=== PATIENT | female | born 1990 | race Asian ===

== ENCOUNTER 2019-03-26 18:24 | Emergency (ER) | payer BC, OTHER ==
[~2019-03-26] VITALS: Ht 152.4 cm; Wt 48.1 kg
[~2019-03-26 18:24] MED LIST: CIPR500T78 PO; HYDR-3714 PO; METR500T PO; OMEP40CA36 PO; ONDA-42 SL
[2019-03-26] MEDS ORDERED: NS IV 1000 ML 1,000 ML IV SCH (19:23)
[2019-03-26] MEDS ORDERED: ACETAMINOPHEN 325 MG TABLET PO STA (19:26)
--- NOTE | 2019-03-26 19:45 | ED General ---
General Chief Complaint: Fever-Adult/Adol Stated Complaint: FEVER AND CHILLS Nursing Triage Note: Pt to ED with c/o fever, chills, headache, vomiting and L lower flank pain that began 5 days ago. Pt reports prior dysuria, but was seen at clinic yesterday and was put on unknown antibiotic. Pt reports the dysuria has resolved. Nursing Sepsis Screen: Possible Sepsis Risk Source of Information: Patient Exam Limitations: No Limitations History of Present Illness Date Seen by Provider: Mar 26, 2019 Time Seen by Provider: 19:25 Initial Comments Here with report of 5 days of fever and chills as well as nausea, vomiting, weakness and headache. Seen at the clinic yesterday and found to have urinary tract infection and started on antibiotic. She does not know what that is. She has been unable to take her antibiotic but otherwise has not been up to eat or drink without vomiting. Complains of left flank and low back pain.. Denies dysuria or diarrhea. Timing/Duration: 4-5 Days Severity: Moderate Associated Systoms: No Chest Pain, No Cough; Fever/Chills, Nausea/Vomiting, Shortness of Air, Weakness Allergies and Home Medications Allergies Coded Allergies: Egg Derived (Verified Allergy, Unknown, 05/31/14) shellfish derived (Verified Allergy, Unknown, 05/31/14) Home Medications Ciprofloxacin HCl 500 Mg Tablet, 500 MG PO BID Prescribed by: GAVIN NORTON on 06/01/14 0250 Hydrocodone Bit/Acetaminophen 1 Each Tablet, 1-2 EACH PO Q6HR PRN PRN for PAIN Prescribed by: GAVIN NORTON on 06/01/14 025 Metronidazole 500 Mg Tab, 1 EACH PO BID Prescribed by: GAVIN NORTON on 06/01/14 0250 Omeprazole 40 Mg Capsule.dr, 40 MG PO BID Prescribed by: TREVOR REYES on 05/31/14 0658 Ondansetron Hcl 4 Mg Tab, 4 MG SL Q4H PRN for NAUSEA FOR NAUSEA AND VOMITING Prescribed by: RTEVOR REYES on 05/31/14 0700 Patient Home Medication List Home Medication List Reviewed: Yes Review of Systems Review of Systems Constitutional: see HPI, chills, fever, weakness EENTM: no symptoms reported Respiratory: no symptoms reported Cardiovascular: no symptoms reported Gastrointestinal: abdominal pain (suprapubic), nausea, vomiting Genitourinary: pain Musculoskeletal: no symptoms reported Skin: no symptoms reported Psychiatric/Neurological: No Symptoms Reported All Other Systems Reviewed Negative Unless Noted: Yes Past Qxnqibw-Liffeh-Hkyyje Hx Past Med/Social Hx: Reviewed Nursing Past Med/Soc Hx Patient Social History Alcohol Use: Denies Use Recreational Drug Use: No 2nd Hand Smoke Exposure: No Recent Foreign Travel: No Contact w/Someone Who Travel: No Recent Infectious Disease Expo: No Immunizations Up To Date Tetanus Booster (TDap): Unknown Seasonal Allergies Seasonal Allergies: No Past Medical History Surgeries: No Respiratory: No Cardiac: No Neurological: No Last Menstrual Period: Mar 11, 2019 Gastrointestinal: No Musculoskeletal: No Endocrine: No Cancer: No Psychosocial: No Integumentary: No Blood Disorders: No Family Medical History Reviewed Nursing Family Hx No Pertinent Family Hx Physical Exam-Suspected Sepsis Physical Exam Vital Signs Vital Signs - First Documented 03/26/19 18:39 Temp 104.2 Pulse 122 Resp 20 B/P (MAP) 105/72 (83) Pulse Ox 98 O2 Delivery Room Air Capillary Refill : Less Than 3 Seconds Blood Pressure Mean: 83 Height, Weight, BMI Height: 5'0" Weight: 106lbs. oz. 48.786472ta; BMI Method:Stated General Appearance: WD/WN, Mild Distress HEENT: PERRL/EOMI, Pharynx Normal Neck: Non Tender, Supple Respiratory: Lungs Clear, Normal Breath Sounds Cardiovascular: No Murmur, Tachycardia Gastrointestinal: Soft, Tenderness (suprapubic) Back: Normal Inspection Extremity: Normal Range of Motion, Non Tender Neurologic/Psychiatric: Alert, Oriented x3 Skin: normal color, warm/dry Focused Exam Lactate Level 03/26/19 19:41: Lactic Acid Level 1.90 Lactic Acid Level Laboratory Tests Test 03/26/19 19:41 Lactic Acid Level 1.90 MMOL/L (0.50-2.00) Progress/Results/Core Measures Suspected Sepsis Recent Fever Within 48 Hours: Yes Infection Criteria Present: Suspected New Infection New/Unexplained Altered Menta: No Sepsis Screen: Possible Sepsis Risk SIRS Temperature:104.2 Pulse: 122 Respiratory Rate: 20 Laboratory Tests 03/26/19 19:41: White Blood Count 13.7H Blood Pressure 105 /72 Mean: 83 03/26/19 19:41: Lactic Acid Level 1.90 Laboratory Tests 03/26/19 19:41: Creatinine 0.76, INR Comment 1.1, Platelet Count 168, Total Bilirubin 1.8H Results/Orders Lab Results Laboratory Tests Test 03/26/19 19:41 03/26/19 20:38 Range/Units White Blood Count 13.7 H 4.3-11.0 10^3/uL Red Blood Count 3.93 L 4.35-5.85 10^6/uL Hemoglobin 12.4 11.5-16.0 G/DL Hematocrit 37 35-52 % Mean Corpuscular Volume 93 80-99 FL Mean Corpuscular Hemoglobin 32 25-34 PG Mean Corpuscular Hemoglobin Concent 34 32-36 G/DL Red Cell Distribution Width 11.6 10.0-14.5 % Platelet Count 168 130-400 10^3/uL Mean Platelet Volume 11.0 H 7.4-10.4 FL Neutrophils (%) (Auto) 84 H 42-75 % Lymphocytes (%) (Auto) 8 L 12-44 % Monocytes (%) (Auto) 8 0-12 % Eosinophils (%) (Auto) 0 0-10 % Basophils (%) (Auto) 0 0-10 % Neutrophils # (Auto) 11.5 H 1.8-7.8 X 10^3 Lymphocytes # (Auto) 1.1 1.0-4.0 X 10^3 Monocytes # (Auto) 1.1 H 0.0-1.0 X 10^3 Eosinophils # (Auto) 0.0 0.0-0.3 10^3/uL Basophils # (Auto) 0.0 0.0-0.1 10^3/uL Prothrombin Time 14.6 12.2-14.7 SEC INR Comment 1.1 0.8-1.4 Activated Partial Thromboplast Time 35 24-35 SEC Sodium Level 133 L 135-145 MMOL/L Potassium Level 3.3 L 3.6-5.0 MMOL/L Chloride Level 98 98-107 MMOL/L Carbon Dioxide Level 19 L 21-32 MMOL/L Anion Gap 16 H 5-14 MMOL/L Blood Urea Nitrogen 5 L 7-18 MG/DL Creatinine 0.76 0.60-1.30 MG/DL Estimat Glomerular Filtration Rate > 60 BUN/Creatinine Ratio 7 Glucose Level 120 H 70-105 MG/DL Lactic Acid Level 1.90 0.50-2.00 MMOL/L Calcium Level 8.7 8.5-10.1 MG/DL Corrected Calcium 8.6 8.5-10.1 MG/DL Total Bilirubin 1.8 H 0.1-1.0 MG/DL Aspartate Amino Transf (AST/SGOT) 18 5-34 U/L Alanine Aminotransferase (ALT/SGPT) 21 0-55 U/L Alkaline Phosphatase 55 40-136 U/L Total Protein 7.5 6.4-8.2 GM/DL Albumin 4.1 3.2-4.5 GM/DL Serum Test, Qualitative NEGATIVE NEGATIVE Urine Color YELLOW Urine Clarity CLEAR Urine pH 8 5-9 Urine Specific Greer 1.010 L 1.016-1.022 Urine Protein 1+ H NEGATIVE Urine Glucose (UA) NEGATIVE NEGATIVE Urine Ketones 3+ H NEGATIVE Urine Nitrite NEGATIVE NEGATIVE Urine Bilirubin NEGATIVE NEGATIVE Urine Urobilinogen 1 NORMAL MG/DL Urine Leukocyte Esterase 2+ H NEGATIVE Urine RBC (Auto) 2+ H NEGATIVE Urine RBC 5-10 H /HPF Urine WBC 10-25 H /HPF Urine Squamous Epithelial Cells 25-50 H /HPF Urine Crystals NONE /LPF Urine Bacteria FEW H /HPF Urine Casts NONE /LPF Urine Mucus NEGATIVE /LPF Urine Culture Indicated CULTURE PENDING Micro Results Microbiology 03/26/19 Influenza Types A,B Antigen (BRAIN) - Final, Complete My Orders Orders - GAVIN NORTON MD Cbc With Automated Diff (03/26/19 19:23) Comprehensive Metabolic Panel (03/26/19 19:23) Blood Culture (03/26/19 19:23) Sputum Culture (03/26/19 19:23) Urinalysis (03/26/19 19:23) Urine Culture (03/26/19 19:23) Protime With Inr (03/26/19 19:23) Partial Thromboplastin Time (03/26/19 19:23) Chest 1 View, Ap/Pa Only (03/26/19 19:23) Ed Iv/Invasive Line Start (03/26/19 19:23) Ed Iv/Invasive Line Start (03/26/19 19:23) Vital Signs Adult Sepsis Patie Q15M (03/26/19 19:23) O2 (03/26/19 19:23) Remove Rings In Anticipation O (03/26/19 19:23) Lactic Acid Analyzer (03/26/19 19:23) Influenza A And B Antigens (03/26/19 19:23) Ns Iv 1000 Ml (Sodium Chloride 0.9%) (03/26/19 19:23) Acetaminophen Tablet/Caplet (Tylenol T (03/26/19 19:26) Hcg,Qualitative Serum (03/26/19 19:47) Oseltamivir 75 Mg Capsule (Tamiflu 75 (03/26/19 19:54) Ed Iv/Invasive Line Start (03/26/19 21:53) Ns Iv 500 Ml (Sodium Chloride 0.9%) (03/26/19 21:53) Ibuprofen Tablet (Motrin Tablet) (03/26/19 21:53) Ondansetron Injection (Zofran Injectio (03/26/19 22:30) Ondansetron Injection (Zofran Injectio (03/26/19 22:12) Medications Given in ED Current Medications Medications Dose Ordered Sig/Nick Route Start Time Stop Time Status Last Admin Dose Admin Ondansetron HCl 4 mg ONCE ONCE IVP 03/26/19 22:30 03/26/19 22:31 DC 03/26/19 22:19 4 MG Oseltamivir Phosphate 75 mg STK-MED ONCE .ROUTE 03/26/19 19:54 03/26/19 20:01 DC 03/26/19 20:07 75 MG Sodium Chloride 500 ml @ 0 mls/hr Q0M ONCE IV 03/26/19 21:53 03/26/19 21:54 DC 03/26/19 22:00 500 MLS/HR Vital Signs/I&O 03/26/19 03/26/19 03/26/19 03/26/19 18:39 19:20 19:40 22:00 Temp 104.2 105.1 103.0 Pulse 122 Resp 20 B/P (MAP) 105/72 (83) Pulse Ox 98 98 O2 Delivery Room Air Room Air Capillary Refill : Less Than 3 Seconds Blood Pressure Mean: 83 Progress Note : Progress Note Seen and evaluated. IV, labs, UA, serum hCG, normal saline 2 L bolus, blood cultures, lactic acid, influenza screen and urine culture ordered. Tylenol 650 mg by mouth ordered for the fever of 104. She did take ibuprofen approximately 3 1/2 hours ago. Monitor patient. 2130: Repeat normal saline 500 mL bolus and ibuprofen 600 mg by mouth for persistent fever. 2250: Ondansetron 4 mg IV for persistent nausea and vomiting. She is influenza positive. She did receive Tamiflu 75 mg by mouth. Monitor patient. 2325: Feeling better and temperature is declining to 101.5. She still feels like she has the flu but is a little better than earlier. We discussed inpatient versus outpatient treatment. She is OK with trying treatment at home with the understanding that if things worsen that she will return. Discharged home with return precautions. Patient verbalize understanding instructions and agreement with plan. Diagnostic Imaging Diagonstic Imaging: Xray Plain Films/CT/US/NM/MRI: chest Comments No acute findings on portable chest x-ray Reviewed: Reviewed by Me Departure Impression Primary Impression: Influenza A Additional Impression: Fever in adult Disposition: HOME, SELF-CARE Condition: Stable Departure-Patient Inst. Decision time for Depature: 23:29 Referrals: INDIO BROWN DO (PCP) Primary Care Physician YADI LOJA APRN (Family) Primary Care Physician Patient Instructions: Flu, Adult (DC), Fever, Adult (DC) Add. Discharge Instructions: All discharge instructions reviewed with patient and/or family. Voiced understanding. It is very important that he drink plenty of fluids. You may take Tylenol/acetaminophen 1000 mg every 6-8 hours as needed for fever or pain. You may take ibuprofen 600 mg every 6-8 hours as needed for fever or pain. It is okay to eat if you're hungry but eat light. You need to get plenty or rest. Wear a mask when you around anybody to help prevent transmission of the flu. Your family should practice good handwashing as well. Follow-up with your DrEwa in a few days for recheck. Return for worse pain, fever, vomiting, breathing problems or other concerns as needed. Scripts Oseltamivir Phosphate (Oseltamivir Phosphate) 75 Mg Capsule 75 MG PO BID for 5 Days, #9 CAP 0 Refills Prov: GAVIN NORTON MD 03/26/19 Ondansetron (Ondansetron Odt) 4 Mg Tab.rapdis 4 MG PO Q4H PRN for NAUSEA/VOMITING, #12 TAB 0 Refills Prov: GAVIN NORTON MD 03/26/19 Work/School Note: Work Release Form Date Seen in the Emergency Department: Mar 26, 2019 Return to Work: Mar 30, 2019 Restrictions: Return-No Fever (24hrs) Other Restrictions Listed Below: Return when fever free for 24 hours Copy Copies To 1: INDIO BROWN TIMOTHY D MD Mar 26, 2019 19:45
[2019-03-26] MEDS ORDERED: OSELTAMIVIR 75 MG (TAMIFLU) CAPSULE ONE (19:54)
[2019-03-26 19:57] LABS: BASOPHILS % (AUTO) 0 % (0-10); EOSINOPHILS % (AUTO) 0 % (0-10); HEMATOCRIT 37 % (35-52); HEMOGLOBIN 12.4 G/DL (11.5-16.0); LYMPHOCYTES # (AUTO) 1.1 X 10^3 (1.0-4.0); LYMPHOCYTES % (AUTO) 8 % (12-44); MEAN CORPUSCULAR HEMOGLOBIN 32 PG (25-34); MEAN CORPUSCULAR HGB CONC 34 G/DL (32-36); MEAN CORPUSCULAR VOLUME 93 FL (80-99); MONOCYTES # (AUTO) 1.1 X 10^3 (0.0-1.0); MONOCYTES % (AUTO) 8 % (0-12); NEUTROPHILS # (AUTO) 11.5 X 10^3 (1.8-7.8); NEUTROPHILS % (AUTO) 84 % (42-75); PLATELET COUNT 168 10^3/uL (130-400); RED CELL DISTRIBUTION WIDTH 11.6 % (10.0-14.5); WHITE BLOOD COUNT 13.7 10^3/uL (4.3-11.0)
[2019-03-26 20:09] LABS: INR 1.1 (0.8-1.4); PROTHROMBIN TIME PATIENT 14.6 SEC (12.2-14.7)
[2019-03-26 20:15] LABS: ALANINE AMINOTRANSFERASE 21 U/L (0-55); ALBUMIN 4.1 GM/DL (3.2-4.5); ALKALINE PHOSPHATASE 55 U/L (40-136); BILIRUBIN,TOTAL 1.8 MG/DL (0.1-1.0); BUN/CREATININE RATIO 7; CALCIUM 8.7 MG/DL (8.5-10.1); CARBON DIOXIDE 19 MMOL/L (21-32); CHLORIDE 98 MMOL/L (98-107); CREATININE SERUM 0.76 MG/DL (0.60-1.30); GFR ESTIMATED > 60; GLUCOSE 120 MG/DL (70-105); POTASSIUM 3.3 MMOL/L (3.6-5.0); SODIUM 133 MMOL/L (135-145); TOTAL PROTEIN 7.5 GM/DL (6.4-8.2)
[2019-03-26 20:45] LABS: BILIRUBIN,URINE NEGATIVE (NEGATIVE); COLOR,URINE YELLOW; GLUCOSE, URINE (UA) NEGATIVE (NEGATIVE); KETONES,URINE 3+ (NEGATIVE); LEUKOCYTE ESTERASE ,URINE 2+ (NEGATIVE); NITRITE,URINE NEGATIVE (NEGATIVE); PH,URINE 8 (5-9); PROTEIN,URINE 1+ (NEGATIVE); UROBILINOGEN,URINE 1 MG/DL (NORMAL)
[2019-03-26 21:00] LABS: BACTERIA,URINE FEW /HPF; CLARITY,URINE CLEAR; SQUAMOUS EPITHELIAL CELL,UR 25-50 /HPF
[2019-03-26] MEDS ORDERED: NS IV 500 ML 500 ML IV ONE (21:53)
[2019-03-26] MEDS ORDERED: IBUPROFEN TABLET 200 MG TAB PO STA (21:53)
[2019-03-26] MEDS ORDERED: ONDANSETRON 4 MG/2 ML (SDV) Z0FRAN ONE (22:12)
[2019-03-26] MEDS ORDERED: ONDANSETRON 4 MG/2 ML (SDV) Z0FRAN IVP ONE (22:30)
--- NOTE | 2019-03-26 22:56 | NUR ---
PT TEMP MONITORED IN RESPONSE TO MEDS AND IV FLUIDS. 1999- 105.5 TYMPANICALLY 2029-102.9 2104-103.2 2255-102.5
[2019-03-26] MEDS ORDERED: OSEL75CA15 PO (23:32)
[2019-03-26] MEDS ORDERED: ONDA4TAB11 PO (23:32)
[2019-03-26 23:37] VITALS: BP 99/56
--- NOTE | 2019-03-27 05:38 | Diagnostic Imaging Report ---
INDICATION: Influenza COMPARISON: None FINDINGS: Single frontal view of the chest demonstrates normal heart size and pulmonary vascularity. The lungs are well aerated and clear. No large pleural effusion or pneumothorax is seen. The visualized osseous structures show no acute abnormalities. IMPRESSION: 1. No acute cardiopulmonary process. Dictated by: Dictated on workstation # [id number]
--- NOTE | 2019-03-28 08:22 | NUR ---
ATTEMPT TO CALL PT BACK CONCERNING POSITIVE BLOOD CULTURE. PT DID NOT ANSWER ET MESSAGE LEFT TO RETURN CALL TO THE ER.
== END 2019-03-26 23:37 | disposition home or self-care (01) ==
LOC: EDUNIT# 18:24 → ER 18:27
DX: J10.1 Influenza due to other identified influenza virus with other respiratory manifestations (principal)
CPT/HCPCS: 36415; 71045; 80053; 81000; 83605; 84703; 85025; 85610; 85730; 87040; 87088; 87186; 87804

== ENCOUNTER 2019-03-28 21:28 | Emergency (ER) | payer OTHER ==
[~2019-03-28] VITALS: Ht 152.4 cm; Wt 48.1 kg
[~2019-03-28 21:28] MED LIST changes: +ONDA4TAB11 PO; +OSEL75CA15 PO
[2019-03-28] MEDS ORDERED: LACTATED RINGERS 1,000 ML IV ONE (22:28)
[2019-03-28 22:37] LABS: BASOPHILS % (AUTO) 0 % (0-10); EOSINOPHILS # (AUTO) 0.1 10^3/uL (0.0-0.3); EOSINOPHILS % (AUTO) 1 % (0-10); HEMATOCRIT 33 % (35-52); HEMOGLOBIN 11.3 G/DL (11.5-16.0); LYMPHOCYTES # (AUTO) 1.9 X 10^3 (1.0-4.0); LYMPHOCYTES % (AUTO) 14 % (12-44); MEAN CORPUSCULAR HEMOGLOBIN 31 PG (25-34); MEAN CORPUSCULAR HGB CONC 34 G/DL (32-36); MEAN CORPUSCULAR VOLUME 92 FL (80-99); MEAN PLATELET VOLUME 11.1 FL (7.4-10.4); MONOCYTES # (AUTO) 1.7 X 10^3 (0.0-1.0); MONOCYTES % (AUTO) 13 % (0-12); NEUTROPHILS # (AUTO) 9.4 X 10^3 (1.8-7.8); NEUTROPHILS % (AUTO) 72 % (42-75); PLATELET COUNT 165 10^3/uL (130-400)
[2019-03-28] MEDS ORDERED: FAMOTIDINE 20MG/2ML IV (PEPCID) IV STA (22:38)
[2019-03-28] MEDS ORDERED: KETOROLAC 30 MG/ML VIAL IVP STA (22:38)
--- NOTE | 2019-03-28 22:38 | ED General ---
General Chief Complaint: Fever-Adult/Adol Stated Complaint: FLU SYMPTOMS Nursing Triage Note: pt was called back to er for positive blood culture with e.coli. pt has documented influenza a. pt states headache, nausea, generalized pain and tired feeling. pt states taking tylenol around 1400. pt currently afebrile. Nursing Sepsis Screen: No Definite Risk Source of Information: Patient Exam Limitations: No Limitations History of Present Illness Date Seen by Provider: Mar 28, 2019 Time Seen by Provider: 22:14 Initial Comments Here with report of upper abdominal pain. Patient was called back today due to positive blood culture with Escherichia coli from visit on Friday. On Friday (2 days ago) she was seen and noted to have influenza A and was quite febrile. She received 2.5 L of fluid as well as antipyretics and initiated on Tamiflu. Since starting the Tamiflu she is noted the stomach bloating and pain that otherwise feels a little better. She was apparently seen prior to that visit at the clinic and initiated on Bactrim DS for urinary tract infection. She continues to take that. Denies diarrhea or dysuria. Is not drinking well due to the abdominal bloating. Timing/Duration: 3-4 Days Severity: Moderate Associated Systoms: No Chest Pain, No Cough; Fever/Chills, Loss of Appetite; No Shortness of Air; Weakness Allergies and Home Medications Allergies Coded Allergies: Egg Derived (Verified Allergy, Unknown, 05/31/14) shellfish derived (Verified Allergy, Unknown, 05/31/14) Home Medications Ciprofloxacin HCl 500 Mg Tablet, 500 MG PO BID Prescribed by: GAVIN NORTON on 06/01/14 0250 Hydrocodone Bit/Acetaminophen 1 Each Tablet, 1-2 EACH PO Q6HR PRN PRN for PAIN Prescribed by: GAVIN NORTON on 06/01/14 0250 Metronidazole 500 Mg Tab, 1 EACH PO BID Prescribed by: GAVIN NORTON on 06/01/14 0250 Omeprazole 40 Mg Capsule.dr, 40 MG PO BID Prescribed by: TREVOR REYES on 05/31/14 0658 Ondansetron 4 Mg Tab.rapdis, 4 MG PO Q4H PRN for NAUSEA/VOMITING Prescribed by: GAVIN NORTON on 03/26/19 2332 Ondansetron Hcl 4 Mg Tab, 4 MG SL Q4H PRN for NAUSEA FOR NAUSEA AND VOMITING Prescribed by: TREVOR REYES on 05/31/14 0700 Oseltamivir Phosphate 75 Mg Capsule, 75 MG PO BID Prescribed by: GAVIN NORTON on 03/26/19 2332 Patient Home Medication List Home Medication List Reviewed: Yes Review of Systems Review of Systems Constitutional: see HPI; No chills; fever EENTM: nose congestion; No throat pain Respiratory: no symptoms reported Gastrointestinal: see HPI, abdominal pain; No hematemesis; loss of appetite; No melena, No nausea, No vomiting Genitourinary: see HPI; No dysuria, No hematuria Musculoskeletal: No back pain; muscle pain Skin: no symptoms reported Psychiatric/Neurological: No Symptoms Reported Hematologic/Lymphatic: No Symptoms Reported All Other Systems Reviewed Negative Unless Noted: Yes Past Uovvnho-Mtdkro-Dfcciz Hx Past Med/Social Hx: Reviewed Nursing Past Med/Soc Hx Patient Social History Alcohol Use: Denies Use Recreational Drug Use: No 2nd Hand Smoke Exposure: No Recent Foreign Travel: No Contact w/Someone Who Travel: No Recent Infectious Disease Expo: No Physical Abuse: No Sexual Abuse: No Mistreated: No Immunizations Up To Date Tetanus Booster (TDap): Unknown Seasonal Allergies Seasonal Allergies: No Past Medical History Surgeries: No Respiratory: No Cardiac: No Neurological: No Gastrointestinal: No Musculoskeletal: No Endocrine: No Cancer: No Psychosocial: No Integumentary: No Blood Disorders: No Family Medical History Reviewed Nursing Family Hx No Pertinent Family Hx Physical Exam-Suspected Sepsis Physical Exam Vital Signs Vital Signs - First Documented 03/28/19 22:15 Temp 99.5 Pulse 86 Resp 18 Pulse Ox 100 O2 Delivery Room Air Capillary Refill : Less Than 3 Seconds Height, Weight, BMI Height: 5'0" Weight: 106lbs. oz. 48.805907wu; 25.39 BMI Method:Stated General Appearance: No Apparent Distress, WD/WN HEENT: PERRL/EOMI, Pharynx Normal Neck: Non Tender, Supple Respiratory: Lungs Clear, Normal Breath Sounds Cardiovascular: Regular Rate, Rhythm, No Murmur Gastrointestinal: Non Tender, Soft Back: Normal Inspection, No CVA Tenderness, No Vertebral Tenderness Extremity: Normal Range of Motion, Non Tender Neurologic/Psychiatric: Alert, Oriented x3 Skin: normal color, warm/dry Focused Exam Lactate Level 03/28/19 22:48: Lactic Acid Level 1.55 Lactic Acid Level Laboratory Tests Test 03/28/19 22:48 Lactic Acid Level 1.55 MMOL/L (0.50-2.00) Progress/Results/Core Measures Suspected Sepsis Recent Fever Within 48 Hours: Yes Infection Criteria Present: Documented Infection New/Unexplained Altered Menta: No Sepsis Screen: No Definite Risk SIRS Temperature:99.5 Pulse: 86 Respiratory Rate: 18 Laboratory Tests 03/28/19 22:30: White Blood Count 13.0H Blood Pressure / Mean: 03/28/19 22:48: Lactic Acid Level 1.55 Laboratory Tests 03/28/19 22:30: Creatinine 0.69, INR Comment 1.1, Platelet Count 165, Total Bilirubin 1.9H Results/Orders Lab Results Laboratory Tests Test 03/28/19 22:30 03/28/19 22:48 Range/Units White Blood Count 13.0 H 4.3-11.0 10^3/uL Red Blood Count 3.60 L 4.35-5.85 10^6/uL Hemoglobin 11.3 L 11.5-16.0 G/DL Hematocrit 33 L 35-52 % Mean Corpuscular Volume 92 80-99 FL Mean Corpuscular Hemoglobin 31 25-34 PG Mean Corpuscular Hemoglobin Concent 34 32-36 G/DL Red Cell Distribution Width 12.0 10.0-14.5 % Platelet Count 165 130-400 10^3/uL Mean Platelet Volume 11.1 H 7.4-10.4 FL Neutrophils (%) (Auto) 72 42-75 % Lymphocytes (%) (Auto) 14 12-44 % Monocytes (%) (Auto) 13 H 0-12 % Eosinophils (%) (Auto) 1 0-10 % Basophils (%) (Auto) 0 0-10 % Neutrophils # (Auto) 9.4 H 1.8-7.8 X 10^3 Lymphocytes # (Auto) 1.9 1.0-4.0 X 10^3 Monocytes # (Auto) 1.7 H 0.0-1.0 X 10^3 Eosinophils # (Auto) 0.1 0.0-0.3 10^3/uL Basophils # (Auto) 0.0 0.0-0.1 10^3/uL Prothrombin Time 14.1 12.2-14.7 SEC INR Comment 1.1 0.8-1.4 Activated Partial Thromboplast Time 36 H 24-35 SEC Sodium Level 137 135-145 MMOL/L Potassium Level 3.5 L 3.6-5.0 MMOL/L Chloride Level 100 98-107 MMOL/L Carbon Dioxide Level 25 21-32 MMOL/L Anion Gap 12 5-14 MMOL/L Blood Urea Nitrogen 6 L 7-18 MG/DL Creatinine 0.69 0.60-1.30 MG/DL Estimat Glomerular Filtration Rate > 60 BUN/Creatinine Ratio 9 Glucose Level 125 H 70-105 MG/DL Calcium Level 8.8 8.5-10.1 MG/DL Corrected Calcium 9.2 8.5-10.1 MG/DL Total Bilirubin 1.9 H 0.1-1.0 MG/DL Aspartate Amino Transf (AST/SGOT) 13 5-34 U/L Alanine Aminotransferase (ALT/SGPT) 16 0-55 U/L Alkaline Phosphatase 65 40-136 U/L C-Reactive Protein High Sensitivity 13.38 H 0.00-0.50 MG/DL Total Protein 6.8 6.4-8.2 GM/DL Albumin 3.5 3.2-4.5 GM/DL Lactic Acid Level 1.55 0.50-2.00 MMOL/L My Orders Orders - GAVIN NORTON MD Cbc With Automated Diff (03/28/19 21:38) Comprehensive Metabolic Panel (03/28/19 21:38) Hs C Reactive Protein (03/28/19 21:38) Lactic Acid Analyzer (03/28/19 21:38) Ua Culture If Indicated (03/28/19 21:38) Blood Culture (03/28/19 21:38) Ed Iv/Invasive Line Start (03/28/19 22:28) Lactated Ringers (Lr 1000 Ml Iv Solution (03/28/19 22:28) Famotidine Injection (Pepcid Injection) (03/28/19 22:38) Ketorolac Injection (Toradol Injection) (03/28/19 22:38) Ceftriaxone For Iv Use (Rocephin For I (03/28/19 23:30) Sputum Culture (03/28/19 23:32) Protime With Inr (03/28/19 23:32) Partial Thromboplastin Time (03/28/19 23:32) Chest 1 View, Ap/Pa Only (03/28/19 23:32) Vital Signs Adult Sepsis Patie Q15M (03/28/19 23:32) Remove Rings In Anticipation O (03/28/19 23:32) Medications Given in ED Current Medications Medications Dose Ordered Sig/Nick Route Start Time Stop Time Status Last Admin Dose Admin Ceftriaxone Sodium 1000 mg/ Sterile Water 10 ml @ 200 mls/hr ONCE ONCE IV 03/28/19 23:30 03/28/19 23:32 DC 03/29/19 00:01 200 MLS/HR Lactated Ringer's 1,000 ml @ 0 mls/hr Q0M ONCE IV 03/28/19 22:28 03/28/19 22:29 DC 03/28/19 22:50 0 MLS/HR Vital Signs/I&O 03/28/19 03/28/19 22:15 23:24 Temp 99.5 100.8 Pulse 86 Resp 18 B/P (MAP) Pulse Ox 100 O2 Delivery Room Air Capillary Refill : Less Than 3 Seconds Progress Note : Progress Note Seen and evaluated. IV, labs, LR 1 L bolus, blood cultures and lactic acid ordered. Toradol 30 mg IV and Pepcid 20 mg IV ordered. Monitor patient. 2354: Discussed case with Dr. Lopez, on-call for [facility]. Patient does have markedly elevated CRP and continued elevation of her white blood cell count. Rocephin 1 g IV ordered. Concerns related to Escherichia coli positive blood culture. Repeat blood cultures have been taken as well as repeat UA ordered. We will continue Tamiflu through completion of 10 doses using home meds pack. Patient did have return of fever this evening. Toradol was ordered. Admit, inpatient status. Patient and family agree with plan. Diagnostic Imaging Diagonstic Imaging: Xray Plain Films/CT/US/NM/MRI: chest Comments No acute findings Reviewed: Reviewed by Me Departure Communication (Admissions) Time/Spoke to Admitting Phy: 23:54 Impression Primary Impression: Septicemia Additional Impression: Influenza A Disposition: ADMITTED INPATIENT Condition: Stable Admissions Decision to Admit Reason: Admit from ER (General) Decision to Admit/Date: Mar 28, 2019 Time/Decision to Admit Time: 23:54 Departure-Patient Inst. Referrals: INDIO BROWN DO (PCP) Primary Care Physician YADI LOJA APRN (Family) Primary Care Physician GAVIN NORTON MD Mar 28, 2019 22:37
[2019-03-28 22:57] LABS: ALANINE AMINOTRANSFERASE 16 U/L (0-55); ALBUMIN 3.5 GM/DL (3.2-4.5); ALKALINE PHOSPHATASE 65 U/L (40-136); BILIRUBIN,TOTAL 1.9 MG/DL (0.1-1.0); BUN/CREATININE RATIO 9; CALCIUM 8.8 MG/DL (8.5-10.1); CARBON DIOXIDE 25 MMOL/L (21-32); CHLORIDE 100 MMOL/L (98-107); CREATININE SERUM 0.69 MG/DL (0.60-1.30); GFR ESTIMATED > 60; GLUCOSE 125 MG/DL (70-105); POTASSIUM 3.5 MMOL/L (3.6-5.0); SODIUM 137 MMOL/L (135-145); TOTAL PROTEIN 6.8 GM/DL (6.4-8.2)
[2019-03-28] MEDS ORDERED: cefTRIAXone FOR IV USE 1,000 MG in WATER (STERILE) FOR INJECTION 10 ML IV ONE (23:30)
[2019-03-28 23:43] LABS: INR 1.1 (0.8-1.4); PROTHROMBIN TIME PATIENT 14.1 SEC (12.2-14.7)
--- NOTE | 2019-03-29 00:53 | NUR ---
PT USED HER PRESCRIBED TAMIFLU, TAKEN PO W/O COMPLICATIONS
--- NOTE | 2019-03-29 07:05 | Diagnostic Imaging Report ---
INDICATION: Question influenza. EXAMINATION: Chest 03/28/2019 COMPARISON: 03/26/2019 FINDINGS: The heart and pulmonary vasculature appear unremarkable. Lungs and pleural spaces clear. IMPRESSION: No acute process. Dictated by: Dictated on workstation # [id number]
--- NOTE | 2019-03-29 09:17 | NUR ---
Pt breakfast tray ordered at this time
--- NOTE | 2019-03-29 10:13 | NUR ---
Dr Cleveland in room discussing transfer to [facility] at this time. Pt request to go by [facility].
[2019-03-29 11:20] VITALS: BP 117/73
== END 2019-03-29 11:20 | disposition other institution (70) ==
LOC: EDUNIT# 21:28 → ER 21:30
DX: A41.9 Sepsis, unspecified organism (principal); J10.1 Influenza due to other identified influenza virus with other respiratory manifestations; Z91.012 Allergy to eggs; Z91.018 Allergy to other foods
CPT/HCPCS: 36415; 71045; 80053; 83605; 85025; 85610; 85730; 86141; 87040

== ENCOUNTER → 2020-05-26 | Outpatient (CLI) | payer OTHER ==
--- NOTE | 2020-05-26 12:51 | Diagnostic Imaging Report ---
INDICATION: Follow-up incomplete anatomy at prior screening assessment. TECHNIQUE: Multiple, limited real-time grayscale images were obtained over the gravid uterus. COMPARISON: 03/17/2020 FINDINGS: Single live intrauterine currently in a cephalic presentation. Normal amount of amniotic fluid. Placenta is posterior without evidence for previa. Cervical length at 4.8 cm. The visualized 4 chamber heart appears unremarkable at follow-up assessment. Maternal adnexa not visualized/imaged. Biometrical growth parameters not performed on this follow-up study. heart rate: 144 beats per minute. number: 1 of 1. IMPRESSION: 1. Single viable intrauterine in a cephalic presentation. Four-chamber heart has unremarkable appearance at follow-up assessment. The posteriorly positioned placenta demonstrates no evidence for previa. Dictated by: Dictated on workstation # [id number]
== END ==
LOC: RAD 10:15
PROVIDERS: ATTEND Nurse Practitioner Women's Health
DX: Z34.90 Encounter for supervision of normal pregnancy, unspecified, unspecified trimester (principal); Z3A.00 Weeks of gestation of pregnancy not specified
CPT/HCPCS: 76816

== ENCOUNTER 2020-07-09 03:20 | Inpatient (IN) | payer OTHER ==
[2020-07-09] VITALS (16 sets, daily range): BP systolic 99–135; BP diastolic 53–97
[~2020-07-09] VITALS: Ht 152.4 cm; Wt 63.8 kg
--- NOTE | 2020-07-09 03:15 | NUR ---
JENNA GATICA presented to unit via W/C from home/ED, accompanied by Olivia Strong, electronics warfare technician & an ED RN, with c/o LABOR, SROM. JENNA GATICA weighed, gowned, voided, and to bed. EFHM and TOCO applied, VS taken. JENNA GATICA oriented to bed controls, call light, TV, heat, and A/C controls. SO to room shortly after pt's arrival.
[2020-07-09] MEDS ORDERED: D5 LR IV SOLUTION 1,000 ML IV ONE (03:41)
[2020-07-09] MEDS ORDERED: D5 LR IV SOLUTION 1,000 ML IV SCH ×2 (03:45→06:30)
[2020-07-09] MEDS ORDERED: MINERAL OIL CONCENTRATE 99.9% 15 ML UDC TOP PRN (03:45)
[2020-07-09 03:48] LABS: BASOPHILS % (AUTO) 0 % (0-10); EOSINOPHILS % (AUTO) 0 % (0-10); HEMATOCRIT 36 % (35-52); HEMOGLOBIN 12.3 g/dL (11.5-16.0); LYMPHOCYTES # (AUTO) 1.6 10^3/uL (1.0-4.0); LYMPHOCYTES % (AUTO) 8 % (12-44); MEAN CORPUSCULAR HEMOGLOBIN 32 pg (25-34); MEAN CORPUSCULAR HGB CONC 35 g/dL (32-36); MEAN CORPUSCULAR VOLUME 93 fL (80-99); MEAN PLATELET VOLUME 11.7 fL (9.0-12.2); MONOCYTES # (AUTO) 1.3 10^3/uL (0.0-1.0); MONOCYTES % (AUTO) 6 % (0-12); NEUTROPHILS # (AUTO) 17.8 10^3/uL (1.8-7.8); NEUTROPHILS % (AUTO) 85 % (42-75); PLATELET COUNT 161 10^3/uL (130-400); WHITE BLOOD COUNT 20.9 10^3/uL (4.3-11.0)
[2020-07-09] MEDS ORDERED: TERBUTALINE INJ 1 MG/ML (BRETHINE) AMP ONE (04:21)
[2020-07-09] MEDS ORDERED: TERBUTALINE INJ 1 MG/ML (BRETHINE) AMP SC ONE (04:30)
[2020-07-09] MEDS ORDERED: BUTORPHANOL INJ 2 MG/ML (STADOL) VIAL IV ONE (04:30)
[2020-07-09] MEDS ORDERED: METOCLOPRAMIDE INJ 10 MG/2 ML (REGLAN) ONE (05:00)
[2020-07-09] MEDS ORDERED: CITRIC ACID/SOB CIT (BICITRA) 30 ML UDC ONE (05:00)
[2020-07-09] MEDS ORDERED: metroNIDAZOLE 500MG/100ML IVPB 100 ML ONE (05:00)
[2020-07-09] MEDS ORDERED: ceFAZolin 2 GM IV Premixed 50 ML ONE (05:01)
[2020-07-09] MEDS ORDERED: FAMOTIDINE 20MG/2ML IV (PEPCID) ONE (05:01)
--- NOTE | 2020-07-09 05:10 | NUR ---
*PHARMACY* Anesthesia c/s pre op protocol meds not scanned, emergent c/s.
[2020-07-09] MEDS ORDERED: MIDAZOLAM 2 MG/2 ML (VERSED) VIAL ONE (05:37)
[2020-07-09] MEDS ORDERED: fentaNYL INJECTION 100 MCG/2 ML AMP ONE ×2 (05:39→05:58)
--- NOTE | 2020-07-09 06:14 | Diagnostic Imaging Report ---
INDICATION: Status post . Instrument count. COMPARISON: None available. FINDINGS: Single AP view of the pelvis and lower abdomen shows no unintended radiopaque foreign body. Nonobstructive bowel gas pattern. No abnormal soft tissue mineralizations. Normal regional skeleton. IMPRESSION: No unintended radiopaque foreign body. Dictated by: Dictated on workstation # [id number]
[2020-07-09] MEDS ORDERED: ONDANSETRON 4 MG/2 ML (SDV) Z0FRAN ONE ×2 (06:18→06:19)
[2020-07-09] MEDS ORDERED: KETOROLAC 30 MG/ML VIAL ONE (06:18)
[2020-07-09] MEDS ORDERED: HYDROmorphone 2 MG/ML VIAL (DILAUDID) ONE (06:19)
[2020-07-09] MEDS: KETOROLAC 30 MG/ML VIAL IVP SCH ×3 (06:22→18:39)
[2020-07-09] MEDS ORDERED: ONDANSETRON 4 MG/2 ML (SDV) Z0FRAN IVP PRN (06:30)
[2020-07-09] MEDS ORDERED: TETANUS,DIPTH,PERTUSS P/F (BOOSTRIX) 0.5 ML VIAL IM ONE (06:30)
[2020-07-09] MEDS ORDERED: MEASLES,MUMPS,RUBELLA 1 EA INJ SC ONE (06:30)
[2020-07-09] MEDS ORDERED: SEVOFLURANE (ULTANE) 15 ML INHAL SOLN ONE (06:34)
[2020-07-09] MEDS ORDERED: PHENYLEPHRINE 100 MCG/ML 10 ML (ANESTHESIA) SYR ONE (06:34)
[2020-07-09] MEDS ORDERED: proPOfol 200 MG/20 ML (DIPRIVAN) VIAL IV ONE (06:34)
[2020-07-09] MEDS ORDERED: OXYTOCIN PRE-MIX DRIP 1,000 ML IV ONE (06:34)
[2020-07-09] MEDS ORDERED: SUCCINYLCHOLINE INJ 100 MG/5 ML SYR/VIAL ONE (06:36)
[2020-07-09] MEDS ORDERED: LIDOCAINE PF 2% 5 ML (XYLOCAINE) VIAL ONE (06:36)
--- NOTE | 2020-07-09 06:36 | History & Physical ---
History and Physical Date Seen by Provider: Jul 09, 2020 Time Seen by Provider: 06:23 This patient is a 30-year-old female 2 para 1 at 38-5/7 weeks gestation. She is a patient of Dr. Chatterjee who was not available. Patient presented with complaint of contractions and fairly shortly after presentation experienced spontaneous rupture membranes. Patient is GBS culture was negative. She has had no [place] problems with the . There was concern with the heart rate almost from the time of presentation as there was tachycardia. Mother temperature was slightly over 99. I was apprised of the patient shortly after admission. Patient was monitored closely cervix was 3 cm on presentation after an hour she had made no change and was beginning to demonstrate concerning changes in the heart rate pattern. From the time of presentation was unclear whether the patient was experienced accelerations or decelerations in the heart rate pattern.. The heart rate was 180 TO 190 with episodes occasionally down to the 170s. There was minimal. After about an hour he began to be decelerations that were suspicious for late decelerations and there was 1 prolonged deceleration down to the 120'S. That was about the point that I was called to see the patient. On my arrival the patient had had improvement of the heart rate pattern back up to the 180 TO 190 but it did at this point appear that there were recurrent late decelerations. There has been no improvement in heart rate variability. This was clearly a category 3 heart rate tracing. On exam the patient's abdomen was tender diffuse and heart rate pattern showed tachysystole. With concern for placental abruption and/or intrauterine infection I asked for stat and talk directly with Dr. Chatterjee who was unavailable for the delivery and apprised her that I would proceed with the delivery. Patient was taken then to the operating room for stat Allergies are to egg and shellfish Medications are vitamin Medical social and surgical history is all per Dr. Chatterjee's antepartum record HEENT exam was normal Neck was supple Abdomen was gravid mild to moderately diffusely tender Extremities show no clubbing or cyanosis. 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 Lab work is as follows Laboratory Tests Test 07/09/20 03:30 07/09/20 04:10 Range/Units White Blood Count 20.9 H 4.3-11.0 10^3/uL Red Blood Count 3.81 3.80-5.11 10^6/uL Hemoglobin 12.3 11.5-16.0 g/dL Hematocrit 36 35-52 % Mean Corpuscular Volume 93 80-99 fL Mean Corpuscular Hemoglobin 32 25-34 pg Mean Corpuscular Hemoglobin Concent 35 32-36 g/dL Red Cell Distribution Width 13.1 10.0-14.5 % Platelet Count 161 130-400 10^3/uL Mean Platelet Volume 11.7 9.0-12.2 fL Immature Granulocyte % (Auto) 1 % Neutrophils (%) (Auto) 85 H 42-75 % Lymphocytes (%) (Auto) 8 L 12-44 % Monocytes (%) (Auto) 6 0-12 % Eosinophils (%) (Auto) 0 0-10 % Basophils (%) (Auto) 0 0-10 % Neutrophils # (Auto) 17.8 H 1.8-7.8 10^3/uL Lymphocytes # (Auto) 1.6 1.0-4.0 10^3/uL Monocytes # (Auto) 1.3 H 0.0-1.0 10^3/uL Eosinophils # (Auto) 0.0 0.0-0.3 10^3/uL Basophils # (Auto) 0.0 0.0-0.1 10^3/uL Immature Granulocyte # (Auto) 0.2 H 0.0-0.1 10^3/uL Assessment and plan term in labor with category 3 heart rate p attern plan is to proceed promptly with delivery - Possible endomyometritis versus placental abruption versus other etiology for category 3 tracing Term in labor at 38+ weeks gestation Allergies and Home Medications Allergies Coded Allergies: Egg Derived (Verified Allergy, Unknown, 05/31/14) shellfish derived (Verified Allergy, Unknown, 05/31/14) Home Medications Ciprofloxacin HCl 500 Mg Tablet, 500 MG PO BID Prescribed by: GAVIN NORTON on 06/01/14 0250 Hydrocodone Bit/Acetaminophen 1 Each Tablet, 1-2 EACH PO Q6HR PRN PRN for PAIN Prescribed by: GAVIN NORTON on 06/01/14 0250 Metronidazole 500 Mg Tab, 1 EACH PO BID Prescribed by: GAVIN NORTON on 06/01/14 0250 Omeprazole 40 Mg Capsule.dr, 40 MG PO BID Prescribed by: TREVOR REYES on 05/31/14 0658 Ondansetron 4 Mg Tab.rapdis, 4 MG PO Q4H PRN for NAUSEA/VOMITING Prescribed by: GAVIN NORTON on 03/26/19 2332 Ondansetron Hcl 4 Mg Tab, 4 MG SL Q4H PRN for NAUSEA FOR NAUSEA AND VOMITING Prescribed by: TREVOR REYES on 05/31/14 0700 Oseltamivir Phosphate 75 Mg Capsule, 75 MG PO BID Prescribed by: GAVIN NORTON on 03/26/19 2332 Patient Home Medication List Home Medication List Reviewed: JAQUELIN Schmitt MD Jul 09, 2020 06:36
[2020-07-09] MEDS ORDERED: OXYC1TAB12 PO (07:04)
[2020-07-09] MEDS ORDERED: IBUP-1780 PO (07:04)
[2020-07-09] MEDS ORDERED: DCS100C PO (07:04)
--- NOTE | 2020-07-09 07:07 | Discharge Inst-Surgical ---
Discharge Inst-Surgical Depart Medication/Instructions New, Converted or Re-Newed RX: RX on Chart Consults/Follow Up Patient Instructions: As directed Orders & Referrals Follow Up Appt: RTC Next Friday, July 14, 2020 at 9:30 AM for incision check With Dr. Soni east. Call to make follow up appt. for patient in [address] Chatterjee. Wound Care: Remove dre, apply benzoin and steri strips. Activity Per routine post instructions. Please call in RX to patient pharmacy. Diet as tolerated Patient may shower or tub bathe as desired. Continue home meds Activity Activity as Tolerated: No Diet Discharge Diet: No Restrictions JAQUELIN CHAMPION MD Jul 09, 2020 07:07
--- NOTE | 2020-07-09 07:18 | NUR ---
Received from PACU after general anesthesia via bed accompanied by Tommy Turcios RN. Report to this RN.
[2020-07-09] MEDS ORDERED: CITRIC ACID/SOB CIT (BICITRA) 30 ML UDC PO ONE (07:45)
[2020-07-09] MEDS ORDERED: METOCLOPRAMIDE INJ 10 MG/2 ML (REGLAN) IV ONE (07:45)
[2020-07-09] MEDS ORDERED: LACTATED RINGERS 1,000 ML IV PRN (07:45)
[2020-07-09] MEDS: oxyCODONE/APAP 10/325MG (PERCOCET 10) TABLET PO PRN ×4 (07:45→13:46)
[2020-07-09] MEDS ORDERED: FAMOTIDINE 20MG/2ML IV (PEPCID) IV ONE (07:45)
[2020-07-09] MEDS: CATHETER FLUSH 10 ML SYR IV SCH ×2 (07:48→19:42)
--- NOTE | 2020-07-09 08:20 | OPERATIVE REPORT ---
DATE OF SERVICE: 07/09/2020 PREOPERATIVE DIAGNOSIS: Term at 38 and 5/7 weeks' gestation in spontaneous labor with spontaneous rupture of membranes and with category heart rate tracing. POSTOPERATIVE DIAGNOSES: Term at 38 and 5/7 weeks' gestation in spontaneous labor with spontaneous rupture of membranes and with category heart rate tracing with likely placental abruption. OPERATIVE PROCEDURE: Primary low transverse delivery of a viable female with Apgars of 6 and 8 at 1 and 5 minutes respectively, weight of 8 pounds and 10 ounces. Cord blood gas pH of 7.24 and a time of 05:35. OPERATIVE DESCRIPTION: With the patient in the supine position and prepped and draped in the usual fashion for abdominal surgery with Martin catheter placed in the urinary bladder to dependent drainage. General anesthesia was induced for stat delivery. On clearance from anesthesia, a Pfannenstiel incision was made through the skin with a scalpel. The patient's abdomen was entered in the usual manner. Bladder retractor placed into position and clean scalpel used to make a 4 cm hysterotomy incision transversely across the lower uterine segment. That incision was extended bluntly. A viable female that was somewhat lethargic, was delivered via the uterine incision in the usual manner. The infant was bulb suctioned on completion of delivery. Umbilical cord was doubly clamped and cut and the passed to the pediatric nurse in attendance for delivery. Cord bloods were obtained. The placenta delivered spontaneously Rodriguez. It was seemed to be practically completely detached at the time that I extracted it. There was a large amount of blood retroplacental, but there was no formed clot. This was suspicious to me for abruption, but not definitive. The placenta was sent to pathology for permanent section. The uterus was exteriorized and interior wiped clean with a wet laparotomy sponge. Uterine incision closed with a running locked suture of 2-0 Vicryl. Hemostasis was satisfactory, but the uterus was quite atonic. A modified B-Del Valle suture was placed using two #1 chromic sutures. This was performed in a modified manner to compress the uterus, which did so nicely stemming additional blood loss. The uterus was returned to the abdominal cavity. All blood clot and debris removed from the abdominal cavity. With sponge and needle counts correct and hemostasis assured, the anterior parietal peritoneum was closed with running suture of 2-0 Vicryl. Rectus muscles were closed without sutures well. The rectus fascia was closed with 2-0 Vicryl, subcutaneous tissue with 2-0 Vicryl. At this point, the procedure was halted for a flat x-ray to evaluate for retained instrument materials as stat counts were not available prior to initiating the procedure. The x-ray appeared completely clear. With confirmation of no retained materials, the skin was then closed with dre. The patient was uneventfully awakened from her general anesthesia and transferred to the recovery room in stable condition. The had been taken to the full term nursery under the care of the pediatric nurse and Dr. Purvis have been called to evaluate the baby. Again, sponge and needle counts were correct. Estimated blood loss was around 500 mL. The patient tolerated the procedure well under the general anesthesia. Job ID: [id number] DocumentID: [id number] Dictated Date: 07/09/2020 06:44:47 Subsorter Date: 07/09/2020 08:20:22 Dictated By: JAQUELIN CHAMPION MD
[2020-07-09] MEDS ORDERED: DOCUSATE SODIUM 100 MG (COLACE) CAP PO SCH (09:00)
[2020-07-09] MEDS: OXYTOCIN PRE-MIX DRIP 500 ML IV SCH (09:08)
[2020-07-09] MEDS: DOCUSATE SODIUM 100 MG (COLACE) CAP PO SCH ×2 (09:10→20:01)
--- NOTE | 2020-07-09 10:45 | NUR ---
Pt desires to get out of bed. Attempted to sit on edge of bed but pt unable to manage due to pain. Pad changed with moderate amount rubra
--- NOTE | 2020-07-09 12:00 | NUR ---
1200 Out of bed very cautiously to bathroom. Voided 100ml. Pt able to manage pain better with pillow to abdomen. Assisted back to bed. Preparing to do IS and SCD's on. Tolerating fluids and food well. S.O. at bedside.
--- NOTE | 2020-07-09 14:15 | NUR ---
In wheelchair to go see baby in nursery.
[2020-07-09 16:25] LABS: BASOPHILS # (AUTO) 0.1 10^3/uL (0.0-0.1); BASOPHILS % (AUTO) 0 % (0-10); EOSINOPHILS % (AUTO) 0 % (0-10); HEMATOCRIT 31 % (35-52); HEMOGLOBIN 10.2 g/dL (11.5-16.0); LYMPHOCYTES # (AUTO) 1.5 10^3/uL (1.0-4.0); LYMPHOCYTES % (AUTO) 5 % (12-44); MEAN CORPUSCULAR HEMOGLOBIN 32 pg (25-34); MEAN CORPUSCULAR HGB CONC 33 g/dL (32-36); MEAN CORPUSCULAR VOLUME 96 fL (80-99); MEAN PLATELET VOLUME 11.4 fL (9.0-12.2); MONOCYTES # (AUTO) 1.5 10^3/uL (0.0-1.0); MONOCYTES % (AUTO) 5 % (0-12); NEUTROPHILS # (AUTO) 26.6 10^3/uL (1.8-7.8); NEUTROPHILS % (AUTO) 89 % (42-75); PLATELET COUNT 163 10^3/uL (130-400); WHITE BLOOD COUNT 29.9 10^3/uL (4.3-11.0)
--- NOTE | 2020-07-09 16:39 | NUR ---
Up in chair - has been out of bed since 1344. Denies pain while sitting.
[2020-07-09 16:55] LABS: BAND NEUTROPHILS 7 %; BASOPHILS % (MANUAL) 1 %; LYMPHOCYTES % (MANUAL) 8 %; MONOCYTES % (MANUAL) 4 %; NEUTROPHILS % (MANUAL) 80 %
[2020-07-09 16:56] LABS: RBC MORPH NORMAL
[2020-07-09] MEDS: IBUPROFEN 800 MG (MOTRIN) TAB PO SCH ×2 (19:42→19:44)
--- NOTE | 2020-07-09 22:51 | NUR ---
COVID positive lab results appeared, notified Dr. Hurt, no new orders rc'd, will put pt. in isolation, nsy notified.
[2020-07-10] MEDS: IBUPROFEN 800 MG (MOTRIN) TAB PO SCH ×5 (02:18→21:30)
[2020-07-10] MEDS: OXYTOCIN PRE-MIX DRIP 500 ML IV SCH (02:19)
[2020-07-10 03:41] VITALS: BP 98/51
[2020-07-10] MEDS: oxyCODONE/APAP 10/325MG (PERCOCET 10) TABLET PO PRN ×3 (06:50→21:31)
--- NOTE | 2020-07-10 07:14 | Anesthesia-General Post-Op ---
General Patient Condition Mental Status/LOC: Same as Preop Cardiovascular: Satisfactory Nausea/Vomiting: Absent Respiratory: Satisfactory Pain: Controlled Complications: Absent Follow Up Care/Instructions Patient Instructions None needed. Anesthesia/Patient Condition Patient Condition Patient is doing well, no complaints, stable vital signs, no apparent adverse anesthesia problems. No complications reported per nursing. MADDIE KRUEGER CRNA Jul 10, 2020 07:14
--- NOTE | 2020-07-10 07:49 | Progress Note ---
Standard Progress Note Progress Notes/Assess & Plan Date Seen by a Provider: Jul 10, 2020 Time Seen by a Provider: 07:47 Progress/Assessment & Plan This patient is without complaint. She is ambulating, voiding, tolerating oral intake well and has good pain control. Patient did test positive for COVID-19 but she remains asymptomatic. She has defervesced since admission. Vital Signs Date Time Temp Pulse Resp B/P (MAP) Pulse Ox O2 Delivery O2 Flow Rate FiO2 07/10/20 03:41 36.9 98 16 98/51 (67) 98 Room Air 07/09/20 20:01 36.4 83 16 109/56 (73) 98 Room Air 07/09/20 16:38 36.7 101 16 99/59 (72) 97 Room Air I & O 07/10/20 06:59 Intake Total 2030 ml Output Total 1400 ml Balance 630 ml Vital signs are stable. Patient is afebrile. Per nurse report the abdomen is benign. The surgical incision is clean dry and intact. Per nurse report there is no Homans' sign. Assessment and plan postoperative day #1 post primary delivery for category 3 heart rate tracing at 38 weeks gestation. Patient is doing well and will have routine convalescent care JAQUELIN CHAMPION MD Jul 10, 2020 07:49
--- NOTE | 2020-07-10 09:00 | NUR ---
Physical shift assessment completed, vital signs obtained, meds given. Pt states not having much pain when resting. Pt would like to shower today, will bring in clean linens. Pt signed Hep B form. No further needs at this time.
[2020-07-10 09:20] VITALS: BP 111/51
[2020-07-10] MEDS: DOCUSATE SODIUM 100 MG (COLACE) CAP PO SCH ×2 (09:23→21:30)
--- NOTE | 2020-07-10 11:00 | NUR ---
Clean linens to room. No further needs at this time.
--- NOTE | 2020-07-10 13:20 | NUR ---
Breast pump equipment to room, instructions given to pt. Pt verbalizes understanding. Papers to sign for medical records given to patient. Consent for transferring given to mother, mother signs. No further needs at this time.
--- NOTE | 2020-07-10 15:25 | NUR ---
Vitals taken, scheduled meds given and infants crib card and complimentary certificate given to mother. Fresh ice and coffee given to patient. No further needs at this time.
[2020-07-10 15:29] VITALS: BP 112/59
--- NOTE | 2020-07-10 20:00 | NUR ---
Called into pt's room, pt. verbalized no complaints, pt. & SO deny needs @ this time. POC reviewed, both verbalized understanding.
--- NOTE | 2020-07-10 21:30 | NUR ---
VSS, shift assessment completed, no prob. noted. Sched colace, motrin & Percocet offered & given for c/o pain w/fresh ice water. Offered & given coffee, Coke & sandwich tray. Pt. verbalizes they rc'd update on infant, doing well, watching on [employer] camera. Pt. & SO both appreciative, will re-eval pain.
[2020-07-10 21:31] VITALS: BP 113/54
[2020-07-11 04:58] VITALS: BP 108/56
[2020-07-11] MEDS: IBUPROFEN 800 MG (MOTRIN) TAB PO SCH ×2 (04:58→10:23)
--- NOTE | 2020-07-11 07:45 | NUR ---
Dr. Hurt here. Plan to dismiss pt today. New orders received. Vital signs obtained, physical shift assessment completed, fresh ice given. No further needs at this time.
[2020-07-11 07:51] VITALS: BP 104/53
--- NOTE | 2020-07-11 10:20 | NUR ---
Pomeroy removed and steri strips applied. Utilized skin prep. Edges well approximated. No redness noted. Scheduled meds given to pt.
[2020-07-11] MEDS: DOCUSATE SODIUM 100 MG (COLACE) CAP PO SCH (10:22)
--- NOTE | 2020-07-11 10:33 | NUR ---
Discharge instructions given to patient. Appointment card for 6 week follow-up with Dr. Chatterjee given. Information on incision check appointment with Dr. Figueroa given to pt. Pt verbalizes understanding. PHS given to pt. section post procedure instructions given to pt. Pt verbalizes understanding. Pt and s/o packing belongings and prepping to leave.
--- NOTE | 2020-07-11 10:50 | NUR ---
Pt discharged from unit in stable condition via wheelchair accompanied by this RN and S/O.
== END 2020-07-11 10:50 | disposition home or self-care (01) | DRG 786 ==
LOC: WSo 03:20 → LDRP 03:20 → WSo 03:28 → LDRP 03:39
PROVIDERS: ADMIT Obstetrics & Gynecology; ATTEND Obstetrics & Gynecology
PROC: 10D00Z1 Extraction of Products of Conception, Low, Open Approach (ICD-10-PCS; principal; 2020-07-09 05:15)
DX: O76 Abnormality in fetal heart rate and rhythm complicating labor and delivery (principal); U07.1 COVID-19; O98.52 Other viral diseases complicating childbirth; Z3A.38 38 weeks gestation of pregnancy; Z37.0 Single live birth
CPT/HCPCS: 36415; 74018; 85007; 85025; 85027; 86780; 86850; 86900; 86901; 87635; 88307; 94664; 99212

== ENCOUNTER → 2021-11-29 | Outpatient (CLI) | payer OTHER ==
[~2021-11-29] MED LIST changes: +DOCU-239 PO; +IBUP-1780 PO; +OXYC1TAB12 PO
--- NOTE | 2021-11-29 13:43 | Diagnostic Imaging Report ---
INDICATION: Routine anatomic survey. . TECHNIQUE: Multiple real-time grayscale images were obtained over the gravid uterus. COMPARISON: None FINDINGS: Single live intrauterine is identified. heart rate is documented at 153 bpm position is transverse with head to maternal left. Amniotic fluid was not objectively measured, but subjectively appears to be within normal limits. Placenta is anterior, not low-lying. Cervix is closed. It measures 5.1 cm in length. Formal anatomic survey was performed and is grossly unremarkable. The kidneys, bladder, stomach, four-chamber heart, three-vessel cord, and cord insertion are appropriately visualized. The intracranial structures and spine are grossly unremarkable as well. Biometrical measurements are as follows: Biparietal 4.57 cm, age 19 weeks 6 days. Head circumference 17.54 cm, age 20 weeks 1 days. Abdominal circumference 15.01 cm, age 20 weeks 2 days. Femur length 3.52 cm, age 21 weeks 1 days. Sonographic estimate age: 20 weeks 3 days. Sonographic estimated date of delivery: 04/15/2022. Estimated Weight: 362 gm (+/- 53 gm). LMP percentile: 61%. heart rate: 153 beats per minute. number: 1 of 1. Maternal adnexa are grossly unremarkable. CLINICAL DATES: 20 weeks and 2 days with estimated date of delivery of 04/16/2022 IMPRESSION: 1. Single live intrauterine , as described above. 2. Unremarkable anatomic survey. Dictated by: Dictated on workstation # [id number]
== END ==
LOC: RAD 10:00
PROVIDERS: ATTEND Nurse Practitioner Women's Health
DX: Z34.01 Encounter for supervision of normal first pregnancy, first trimester (principal); Z3A.20 20 weeks gestation of pregnancy
CPT/HCPCS: 76805

== ENCOUNTER 2022-03-03 10:28 | Outpatient (CLI) | payer OTHER ==
[~2022-03-03] VITALS: Ht 152.4 cm; Wt 72.8 kg
[2022-03-03 10:51] VITALS: BP 115/65
[2022-03-03 10:53] LABS: BILIRUBIN,URINE NEGATIVE (NEGATIVE); CLARITY,URINE CLEAR; COLOR,URINE YELLOW; GLUCOSE, URINE (UA) NEGATIVE (NEGATIVE); KETONES,URINE NEGATIVE (NEGATIVE); LEUKOCYTE ESTERASE ,URINE NEGATIVE (NEGATIVE); NITRITE,URINE NEGATIVE (NEGATIVE); PH,URINE 6.5 (5-9); PROTEIN,URINE NEGATIVE (NEGATIVE)
[2022-03-03 11:01] LABS: BACTERIA,URINE TRACE /HPF
[2022-03-03 11:22] LABS: BASOPHILS % (AUTO) 0 % (0-10); EOSINOPHILS # (AUTO) 0.2 10^3/uL (0.0-0.3); EOSINOPHILS % (AUTO) 2 % (0-10); HEMATOCRIT 32 % (35-52); HEMOGLOBIN 10.9 g/dL (11.5-16.0); LYMPHOCYTES # (AUTO) 1.5 10^3/uL (1.0-4.0); LYMPHOCYTES % (AUTO) 14 % (12-44); MEAN CORPUSCULAR HEMOGLOBIN 32 pg (25-34); MEAN CORPUSCULAR HGB CONC 34 g/dL (32-36); MEAN CORPUSCULAR VOLUME 94 fL (80-99); MEAN PLATELET VOLUME 10.9 fL (9.0-12.2); MONOCYTES # (AUTO) 0.6 10^3/uL (0.0-1.0); MONOCYTES % (AUTO) 5 % (0-12); NEUTROPHILS # (AUTO) 8.4 10^3/uL (1.8-7.8); NEUTROPHILS % (AUTO) 77 % (42-75); PLATELET COUNT 171 10^3/uL (130-400); WHITE BLOOD COUNT 10.9 10^3/uL (4.3-11.0)
[2022-03-03 11:35] LABS: ALBUMIN 3.3 GM/DL (3.2-4.5); POTASSIUM 3.8 MMOL/L (3.6-5.0)
[2022-03-03 11:36] LABS: CALCIUM 8.4 MG/DL (8.5-10.1)
[2022-03-03 11:38] LABS: TOTAL PROTEIN 6.1 GM/DL (6.4-8.2)
[2022-03-03 11:39] LABS: BILIRUBIN,TOTAL 0.5 MG/DL (0.1-1.0)
[2022-03-03 11:41] LABS: CREATININE SERUM 0.56 MG/DL (0.60-1.30)
--- NOTE | 2022-03-04 08:24 | Physician Query-Final Dx ---
MARCO03/04/22 0824: Clinic Account Progress/Dx Physician Query: Please give diagnosis Please include # weeks gestation Date of Service Mar 03, 2022 at 10:28 RAZA CHAMPAGNE DO 03/06/22 0014: Clinic Account Progress/Dx DIAGNOSIS: Diagnosis 33 week IUP Pelvic pain Low back pains MARCO,AugMar 04, 2022 08:24 RAZA CHAMPAGNE DO Mar 06, 2022 00:14
== END 2022-03-03 12:13 | disposition home or self-care (01) ==
LOC: LDRP 10:28 → WSo 10:28
PROVIDERS: ATTEND Obstetrics & Gynecology
DX: O26.899 Other specified pregnancy related conditions, unspecified trimester (principal); R10.9 Unspecified abdominal pain; Z3A.00 Weeks of gestation of pregnancy not specified
CPT/HCPCS: 36415; 80053; 81000; 85025; 87088; 99212

== ENCOUNTER → 2022-04-05 | Outpatient (CLI) | payer OTHER ==
[~2022-04-05] VITALS: Ht 152.4 cm; Wt 77.5 kg
[~2022-04-05] MED LIST changes: +ACHD5005 PO; +DOCU100C37 PO; +IBUP-844 PO
== END | disposition home or self-care (01) ==
LOC: PREOP 11:10
PROVIDERS: ATTEND Obstetrics & Gynecology
DX: Z01.818 Encounter for other preprocedural examination (principal)

== ENCOUNTER 2022-04-09 00:32 | Inpatient (IN) | payer OTHER ==
[2022-04-09] VITALS (10 sets, daily range): BP systolic 95–127; BP diastolic 47–64
[~2022-04-09] VITALS: Ht 152.5 cm; Wt 76.8 kg
[~2022-04-09 00:32] MED LIST changes: -ACHD5005 PO; -DOCU100C37 PO; -IBUP-844 PO
[2022-04-09] MEDS: LACTATED RINGERS 1,000 ML IV PRN ×2 (09:52→10:35)
[2022-04-09] MEDS ORDERED: ceFAZolin INJECTION 2,000 MG in NS (IVPB) 50 ML IV NR (10:00)
[2022-04-09] MEDS ORDERED: FAMOTIDINE 20MG/2ML IV (PEPCID) IV NR (10:00)
[2022-04-09] MEDS ORDERED: CITRIC ACID/SOB CIT (BICITRA) 30 ML UDC PO NR (10:00)
[2022-04-09] MEDS ORDERED: METOCLOPRAMIDE INJ 10 MG/2 ML (REGLAN) IV NR (10:00)
[2022-04-09] MEDS ORDERED: LACTATED RINGERS 1,000 ML IV PRN (10:15)
[2022-04-09 10:16] LABS: HEMOGLOBIN 11.7 g/dL (11.5-16.0)
[2022-04-09 10:18] LABS: BASOPHILS % (AUTO) 0 % (0-10); EOSINOPHILS # (AUTO) 0.2 10^3/uL (0.0-0.3); EOSINOPHILS % (AUTO) 2 % (0-10); HEMATOCRIT 35 % (35-52); LYMPHOCYTES # (AUTO) 1.4 10^3/uL (1.0-4.0); LYMPHOCYTES % (AUTO) 13 % (12-44); MEAN CORPUSCULAR HEMOGLOBIN 31 pg (25-34); MEAN CORPUSCULAR HGB CONC 34 g/dL (32-36); MEAN CORPUSCULAR VOLUME 93 fL (80-99); MONOCYTES # (AUTO) 0.8 10^3/uL (0.0-1.0); MONOCYTES % (AUTO) 7 % (0-12); NEUTROPHILS # (AUTO) 8.3 10^3/uL (1.8-7.8); NEUTROPHILS % (AUTO) 77 % (42-75); PLATELET COUNT 145 10^3/uL (130-400); WHITE BLOOD COUNT 10.8 10^3/uL (4.3-11.0)
--- NOTE | 2022-04-09 11:26 | History & Physical-OB ---
NANCYBHAVNA Cory 04/09/22 1126: OB - Chief Complaint & HPI Date/Time Date of Admission: Date of Admission: Apr 09, 2022 at 09:39 Date seen by a Provider: Apr 09, 2022 Time Seen by a Provider: 11:30 Chief Complaint/History OB-Reason for Admission/Chief: Section Hx : 2 Hx Para: 1 Expected Date of Delivery: Apr 16, 2022 Gestational Age in Weeks: 39 Gestational Age in Days: 0 Admission Nurse Assessment Rev: Yes History of Labs 32 yo @39 weeks RI GBS neg Hx of previous without complications Allergies and Home Medications Allergies Coded Allergies: No Known Drug Allergies (Unverified , 07/09/20) Patient Home Medication List Home Medication List Reviewed: Yes No Active Prescriptions or Reported Meds OB - History Hx of Present Care: Yes Obstetrical Complications: None Medical Complications: None Information Induced Hypertension: No Maternal Gestational Diabetes: No Hemorrhage: No Obstetrical History Hx : 2 Hx Para: 1 Number of Living Children: 1 Hx Complication: No Delivery History Hx Section: Yes Hx Blood Disorders: No Patient Past Medical History None Social History/Family History Alcohol Use: Denies Use Recreational Drug Use: No Smoking Cessation: Never smoker 2nd Hand Smoke Exposure: No Immunizations First/Initial COVID19 Vaccine: January 2022 Hepatitis A: No Hepatitis B: No Tetanus Booster (TDap): Unknown OB - Admission Exam Physical Exam Vitals: Vital Signs 04/09/22 09:44 Temp 36.5 Pulse 100 Resp 16 Pulse Ox 99 O2 Delivery Room Air Labs Laboratory Tests Test 04/09/22 10:05 Range/Units White Blood Count 10.8 4.3-11.0 10^3/uL Red Blood Count 3.74 L 3.80-5.11 10^6/uL Hemoglobin 11.7 11.5-16.0 g/dL Hematocrit 35 35-52 % Mean Corpuscular Volume 93 80-99 fL Mean Corpuscular Hemoglobin 31 25-34 pg Mean Corpuscular Hemoglobin Concent 34 32-36 g/dL Red Cell Distribution Width 14.6 H 10.0-14.5 % Platelet Count 145 130-400 10^3/uL Mean Platelet Volume 12.0 9.0-12.2 fL Immature Granulocyte % (Auto) 1 % Neutrophils (%) (Auto) 77 H 42-75 % Lymphocytes (%) (Auto) 13 12-44 % Monocytes (%) (Auto) 7 0-12 % Eosinophils (%) (Auto) 2 0-10 % Basophils (%) (Auto) 0 0-10 % Neutrophils # (Auto) 8.3 H 1.8-7.8 10^3/uL Lymphocytes # (Auto) 1.4 1.0-4.0 10^3/uL Monocytes # (Auto) 0.8 0.0-1.0 10^3/uL Eosinophils # (Auto) 0.2 0.0-0.3 10^3/uL Basophils # (Auto) 0.0 0.0-0.1 10^3/uL Immature Granulocyte # (Auto) 0.1 0.0-0.1 10^3/uL Percent Immature Platelet Fraction 12.1 H 0.0-7.6 % OB - Assessment/Plan/Diagnosis Assessment Assessment: section Admission Dx 32 yo F @39weeks here for scheduled Admission Status: Inpatient Order (span 2 midnights) Reason for Inpatient Admission: Plan Plan: Expectant Management, Section DAMEON CHAMPAGNE DO 04/09/22 1141: Allergies and Home Medications Allergies Coded Allergies: No Known Drug Allergies (Unverified , 07/09/20) Patient Home Medication List No Active Prescriptions or Reported Meds OB - Assessment/Plan/Diagnosis Plan Other Plan Verification and Attestation of Medical Student E/M Service A medical student performed and documented this service in my presence. I reviewed and verified all information documented by the medical student and made modifications to such information, when appropriate. I personally performed the physical exam and medical decision making. Dameon Champagne, Apr 09, 2022,11:41 BHAVNA CRUZ Apr 09, 2022 11:26 DAMEON CHAMPAGNE DO Apr 09, 2022 11:41
[2022-04-09] MEDS ORDERED: fentaNYL INJ 100 MCG/2 ML AMP ONE (11:35)
[2022-04-09] MEDS ORDERED: OXYTOCIN PRE-MIX DRIP 1,000 ML IV ONE (11:35)
[2022-04-09] MEDS ORDERED: ROPIVACAINE 5MG/ML 30ML VIAL ONE (11:35)
--- NOTE | 2022-04-09 11:53 | Discharge Inst-Women's Service ---
Discharge Inst-Women's Serv Depart Medication/Instructions New, Converted or Re-Newed RX: Transmitted to Pharmacy Final Diagnosis POD 2 RLTCS Problems Reviewed?: Yes Consults/Follow Up Additional Follow Up: Yes Orders/Referrals Dr. Moore in 7-10 days and in 6 weeks Activity Activity: Activity as Tolerated Driving Instructions: No Driving for 1 Week NO SMOKING: NO SMOKING Nothing Inside Vagina: No Douching, No [place], No Tampons Diet Discharge Diet: No Restrictions Symptoms to Report to : Bleeding Excessive, Pain Increased, Fever Over 101 Degrees F, Vaginal Bleeding Increase, Questions/Concerns For Any Problems or Questions: Contact Your Physician Skin/Wound Care Infection Signs and Symptoms: Increased Redness, Foul Odor of Wound, Increased Drainage, Skin Itchy or Has a Rash, Increased Swelling, Temperature Above 101 F Operative Area Clean and Dry: Keep Incision Clean/Dry Stitches/[place]/Dermabond: Dermabond, Care of Stitches Bathing Instructions: RAZA Martin DO Apr 09, 2022 11:53
[2022-04-09] MEDS ORDERED: IBUP-844 PO (11:55)
[2022-04-09] MEDS ORDERED: ACHD5005 PO (11:55)
[2022-04-09] MEDS ORDERED: DOCU100C37 PO (11:55)
[2022-04-09] MEDS ORDERED: TETANUS,DIPTH,PERTUSS P/F (BOOSTRIX) 0.5 ML VIAL IM SCH (12:00)
[2022-04-09] MEDS ORDERED: MEASLES,MUMPS,RUBELLA 1 EA INJ SC SCH (12:00)
[2022-04-09] MEDS ORDERED: NALOXONE 0.4 MG/ML 1 ML (NARCAN) VIAL IV PRN (12:00)
[2022-04-09] MEDS ORDERED: ONDANSETRON 4 MG/2 ML (SDV) Z0FRAN IVP PRN ×2 (12:00→13:15)
[2022-04-09] MEDS ORDERED: PHENYLEPHRINE 100 MCG/ML 10 ML (ANESTHESIA) SYR ONE (12:04)
[2022-04-09] MEDS ORDERED: KETOROLAC 30 MG/ML VIAL ONE (12:20)
[2022-04-09] MEDS: KETOROLAC 30 MG/ML VIAL IV SCH ×3 (12:30→23:38)
[2022-04-09] MEDS: METOCLOPRAMIDE 10 MG (REGLAN) TAB PO SCH ×3 (13:05→23:38)
[2022-04-09] MEDS: OXYTOCIN PRE-MIX DRIP 500 ML IV SCH (13:12)
[2022-04-09] MEDS ORDERED: HYDROmorphone 2 MG/ML VIAL (DILAUDID) IV ONE (13:15)
[2022-04-09] MEDS ORDERED: CATHETER FLUSH 10 ML SYR IV SCH (14:00)
--- NOTE | 2022-04-09 15:15 | OPERATIVE REPORT ---
DATE OF SERVICE: PREOPERATIVE DIAGNOSES: 1. A 32-year-old G2, P1 at 39 weeks gestation. 2. Previous section. POSTOPERATIVE DIAGNOSES: 1. A 32-year-old G2, P1 at 39 weeks gestation. 2. Previous section. PROCEDURE: Repeat low transverse section. SURGEON: Dr. Dameon Champagne. ANESTHESIA: Spinal. ESTIMATED BLOOD LOSS: 500 mL. URINE OUTPUT: 100 mL clear at the end of the procedure. FLUIDS: 800 mL lactated Ringer's solution. FINDINGS: A live female infant weighing 8 pounds 10 ounces, Apgars of 8 and 9. Grossly normal appearing uterus, bilateral fallopian tubes and ovaries. SPECIMEN SENT: None. INDICATIONS FOR PROCEDURE: This 32-year-old female is a patient who had sought care in my office. Her was uncomplicated with the exception of needing for repeat . I discussed with the patient, risk of this versus and she opted to proceed with repeat . Risks of the procedure were discussed with the patient in detail including risk of bleeding, infection, damage to any surrounding structures including but not limited to bowel, bladder, ureter, kidneys, possible need for reoperation, postoperative complications that may occur, risk from recovery timeframe, risk from anesthesia and even . After everything was discussed with the patient in detail, consent was obtained, the patient was taken to the operating room. OPERATIVE REPORT IN DETAIL: Once in the operating room, spinal analgesia was found to be adequate, placed in supine position with leftward tilt, prepped and draped in normal sterile fashion. Timeout was performed. Anesthesia was tested and I then make a Pfannenstiel skin incision through the previously existing scar using knife and carried down to underlying fascia using Bovie cautery. The fascial incision extended laterally using Bovie cautery. Superior aspect of fascial incision was then grasped with Vlad clamps, tented up and dissected off the underlying rectus muscles. The inferior aspect of fascial incision was then grasped with Vlad clamps, tented up and dissected off the underlying rectus muscles. Rectus muscles were dissected down the midline, which exposed the peritoneum, which I entered bluntly and extended using blunt traction. Abel ring retractor was placed in the peritoneal incision, which offers excellent lateral sidewall retraction. I identified the lower uterine segment, which was found to be thinned out and make a low transverse incision to the vesicouterine peritoneum and bluntly dissected this off the lower uterine segment, creating a bladder flap. I then proceeded with my myotomy until membranes were visualized, at which point I extended the uterine incision laterally and superiorly using bandage scissors. Amniotomy was then performed using Allis clamp. Clear fluid was noted. The infant was found in vertex presentation. With gentle fundal pressure, the infant's head was elevated up the incision where it was delivered through the incision. The nares and oropharynx are bulb suctioned using a bulb. I then delivered the anterior and posterior shoulders and the was brought to the operative field with cord was doubly clamped and cut and infant was handed off to waiting nurses in attendance. Cord blood was collected, 3-vessel cord with intact placenta was delivered spontaneously thereafter. IV Pitocin is initiated to facilitate uterine contraction. Uterine fundus confirmed by manual massage. The uterus was then exteriorized and cleared of all endometrial clots and debris. I then proceeded with closing the uterine incision using 0 Vicryl suture in running locked fashion. Second layer of imbricating 0 Monocryl was placed. Excellent hemostasis was noted after doing this. I then placed the uterus back in the pelvis and copiously irrigated the pelvis using normal saline. Once again, there was no active bleeding noted from any of my dissection planes. I placed Interceed antiadhesive over my low transverse incision. I removed the Abel ring retractor and then proceeded with closing the peritoneum using 3-0 Vicryl suture in a running fashion. The rectus muscle reapproximated using 3-0 Vicryl suture in interrupted fashion. The fascia was reapproximated using 0 Vicryl suture in running fashion. The subcutaneous tissue was reapproximated using 3-0 plain interrupted subcutaneous stitch and skin reapproximated using 4-0 Monocryl in a running subcuticular. Dermabond was applied to incision and sterile dressing with adhesive white tape. The patient tolerated the procedure well and sent to recovery area in stable condition. Lap and sponge counts were correct at the end of procedure. Instrument counts correct as well. Two grams of Ancef given preoperatively for infection prophylaxis. Job ID: [id number] DocumentID: [id number] Dictated Date: 04/09/2022 12:43:21 Electric Needle Specialist Date: 04/09/2022 15:15:25 Dictated By: DAMEON CHAMPAGNE DO
[2022-04-09] MEDS: DOCUSATE SODIUM 100 MG (COLACE) CAP PO SCH (21:04)
[2022-04-10 04:15] VITALS: BP 113/56
[2022-04-10 06:11] LABS: HEMOGLOBIN 10.1 g/dL (11.5-16.0); MEAN CORPUSCULAR HEMOGLOBIN 32 pg (25-34)
[2022-04-10 06:12] LABS: BASOPHILS # (AUTO) 0.1 10^3/uL (0.0-0.1); BASOPHILS % (AUTO) 0 % (0-10); EOSINOPHILS # (AUTO) 0.2 10^3/uL (0.0-0.3); EOSINOPHILS % (AUTO) 2 % (0-10); HEMATOCRIT 30 % (35-52); LYMPHOCYTES # (AUTO) 1.6 10^3/uL (1.0-4.0); LYMPHOCYTES % (AUTO) 13 % (12-44); MEAN CORPUSCULAR HGB CONC 34 g/dL (32-36); MEAN CORPUSCULAR VOLUME 93 fL (80-99); MEAN PLATELET VOLUME 12.3 fL (9.0-12.2); MONOCYTES # (AUTO) 0.8 10^3/uL (0.0-1.0); MONOCYTES % (AUTO) 7 % (0-12); NEUTROPHILS # (AUTO) 9.4 10^3/uL (1.8-7.8); NEUTROPHILS % (AUTO) 77 % (42-75); PLATELET COUNT 136 10^3/uL (130-400); WHITE BLOOD COUNT 12.2 10^3/uL (4.3-11.0)
[2022-04-10] MEDS: KETOROLAC 30 MG/ML VIAL IV SCH (06:29)
[2022-04-10] MEDS: METOCLOPRAMIDE 10 MG (REGLAN) TAB PO SCH ×3 (06:29→17:25)
--- NOTE | 2022-04-10 07:23 | Postpartum Progress Note ---
BHAVNA CRUZ Cory 04/10/22 0723: Note Note Day # 1 Subjective: Patient is without complaints. Ambulating, voiding. Tolerating a regular diet without nausea or vomiting. Normal lochia. Pain is well controlled with oral pain medications. Patient has been having difficulty breast feeding since yesterday. Only has been able to produce 10oz. No other complaints. Objective: VSS, Afebrile Physical Exam: General - Alert and oriented, no apparent distress Abdomen - Soft, appropriately tender to palpation, non-distended, fundus firm at umbilicus Extremities - no edema, negative Tommy's bilaterally Assessment: Acute blood loss anemia Hbg 10.1, post- day # 1, status post scheduled section delivery. Recovering well, hemodynamically stable Plan: Routine care. Encourage breast feeding. Encourage ambulation. Ferrous sulfate supplementation. D/C in 2 days and follow up in six weeks with Dr. Champagne Vitals - Labs Vital Signs - I&O Vital Signs Date Time Temp Pulse Resp B/P (MAP) Pulse Ox O2 Delivery O2 Flow Rate FiO2 04/10/22 04:15 36.5 88 18 113/56 (75) 97 Room Air 04/09/22 23:41 37.1 103 18 113/59 (77) 97 Room Air 04/09/22 21:05 36.8 95 18 115/63 (80) 97 Room Air 04/09/22 18:31 36.9 107 16 116/57 (76) 97 Room Air 04/09/22 14:49 Room Air 04/09/22 14:30 36.4 72 16 108/57 (74) 97 Room Air 04/09/22 14:03 36.3 69 18 111/59 (76) 98 Room Air 04/09/22 13:33 36.3 16 97/56 (70) 98 Room Air 04/09/22 13:33 Room Air 04/09/22 13:18 36.4 16 101/55 (70) 97 Room Air 04/09/22 13:18 Room Air 04/09/22 13:03 Room Air 04/09/22 13:03 36.4 14 99/53 (68) 95 Room Air 04/09/22 12:48 Room Air 04/09/22 12:48 36.4 16 95/47 (63) 97 Room Air 04/09/22 09:44 36.5 100 16 99 Room Air I & O 04/10/22 07:00 Intake Total 1550 ml Output Total 100 ml Balance 1450 ml Labs Laboratory Tests 04/09/22 10:05: White Blood Count 10.8, Red Blood Count 3.74L, Hemoglobin 11.7, Hematocrit 35, Mean Corpuscular Volume 93, Mean Corpuscular Hemoglobin 31, Mean Corpuscular Hemoglobin Concent 34, Red Cell Distribution Width 14.6H, Platelet Count 145, Mean Platelet Volume 12.0, Immature Granulocyte % (Auto) 1, Neutrophils (%) (Auto) 77H, Lymphocytes (%) (Auto) 13, Monocytes (%) (Auto) 7, Eosinophils (%) (Auto) 2, Basophils (%) (Auto) 0, Neutrophils # (Auto) 8.3H, Lymphocytes # (Auto) 1.4, Monocytes # (Auto) 0.8, Eosinophils # (Auto) 0.2, Basophils # (Auto) 0.0, Immature Granulocyte # (Auto) 0.1, Percent Immature Platelet Fraction 12.1H 04/10/22 05:56: White Blood Count 12.2H, Red Blood Count 3.19L, Hemoglobin 10.1L, Hematocrit 30L , Mean Corpuscular Volume 93, Mean Corpuscular Hemoglobin 32, Mean Corpuscular Hemoglobin Concent 34, Red Cell Distribution Width 14.6H, Platelet Count 136, Mean Platelet Volume 12.3H, Immature Granulocyte % (Auto) 1, Neutrophils (%) (Auto) 77H, Lymphocytes (%) (Auto) 13, Monocytes (%) (Auto) 7, Eosinophils (%) (Auto) 2, Basophils (%) (Auto) 0, Neutrophils # (Auto) 9.4H, Lymphocytes # (Auto) 1.6, Monocytes # (Auto) 0.8, Eosinophils # (Auto) 0.2, Basophils # (Auto) 0.1, Immature Granulocyte # (Auto) 0.1, Percent Immature Platelet Fraction 11.9H DAMEON CHAMPAGNE DO 04/10/22 1319: Note Note Verification and Attestation of Medical Student E/M Service A medical student performed and documented this service in my presence. I reviewed and verified all information documented by the medical student and made modifications to such information, when appropriate. I personally performed the physical exam and medical decision making. Dameon Champagne Apr 10, 2022,13:19 BHAVNA CRUZ Apr 10, 2022 07:23 DAMEON CHAMPAGNE DO Apr 10, 2022 13:19
[2022-04-10] MEDS: DOCUSATE SODIUM 100 MG (COLACE) CAP PO SCH ×2 (09:36→21:46)
[2022-04-10 09:45] VITALS: BP 106/50
[2022-04-10] MEDS: HYDROcodone/APAP 5 MG/325 MG (LORTAB) TAB PO PRN ×2 (09:52→17:25)
[2022-04-10] MEDS: OXYTOCIN PRE-MIX DRIP 500 ML IV SCH (11:36)
--- NOTE | 2022-04-10 11:57 | Anesthesia-Regional Post-Op ---
Regional Patient Condition Mental Status: Alert, Oriented x3 Circulation: Same as Pre-Op Headache: Absent Sensation: Full Recovery Motor Block: Absent Post Op Complications Complications None Follow Up Care/Instructions Patient Instructions None needed. Anesthesia/Patient Condition Patient is doing well, no complaints, stable vital signs, no apparent adverse anesthesia problems. No complications reported per nursing. D/C home per [facility] Criteria: Yes JON MCDANIELS CRNA Apr 10, 2022 11:57
[2022-04-10] MEDS: IBUPROFEN 600 MG (MOTRIN) TAB PO SCH ×2 (12:01→17:25)
[2022-04-10 12:45] VITALS: BP 114/70
[2022-04-10 17:30] VITALS: BP 122/76
[2022-04-11] MEDS: IBUPROFEN 600 MG (MOTRIN) TAB PO SCH ×3 (00:58→11:30)
[2022-04-11] MEDS: METOCLOPRAMIDE 10 MG (REGLAN) TAB PO SCH ×3 (00:58→11:30)
[2022-04-11 00:59] VITALS: BP 115/57
[2022-04-11] MEDS: HYDROcodone/APAP 5 MG/325 MG (LORTAB) TAB PO PRN (00:59)
[2022-04-11 06:11] VITALS: BP 119/59
[2022-04-11] MEDS: DOCUSATE SODIUM 100 MG (COLACE) CAP PO SCH (08:41)
[2022-04-11 11:15] VITALS: BP 113/66
[2022-04-11 11:49] VITALS: BP 113/66
--- NOTE | 2022-04-11 12:33 | Postpartum Progress Note ---
Note Note Day # 2 Subjective: Patient is without complaints. Ambulating, voiding. Tolerating a regular diet without nausea or vomiting. Normal lochia. Pain is well controlled with oral pain medications. Physical Exam: General - Alert and oriented, no apparent distress Abdomen - Soft, appropriately tender to palpation, non-distended, fundus firm at umbilicus; incision c/d/i Extremities - no edema, negative Tommy's bilaterally Assessment: Post- day # 2, status post RLTCS Recovering well, hemodynamically stable Acute blood loss anemia Plan: Routine care. Encourage breast feeding. Encourage ambulation. Ferrous sulfate supplementation. Plan for discharge today Vitals - Labs Vital Signs - I&O Vital Signs Date Time Temp Pulse Resp B/P (MAP) Pulse Ox O2 Delivery O2 Flow Rate FiO2 04/11/22 11:49 37.3 102 16 113/66 97 Room Air 04/11/22 11:15 37.3 102 16 113/66 (82) 97 Room Air 04/11/22 06:11 36.8 89 18 119/59 (79) Room Air 04/11/22 00:59 37.0 88 18 115/57 (76) 98 Room Air 04/10/22 17:30 36.6 91 18 122/76 (91) 98 Room Air 04/10/22 12:45 36.5 90 18 114/70 (85) 98 Room Air ZACARIAS FERRARI APRN Apr 11, 2022 12:33
== END 2022-04-11 13:30 | disposition home or self-care (01) | DRG 787 ==
LOC: LDRP 09:39
PROVIDERS: ADMIT Obstetrics & Gynecology; ATTEND Obstetrics & Gynecology
PROC: 10D00Z1 Extraction of Products of Conception, Low, Open Approach (ICD-10-PCS; principal; 2022-04-09 11:50)
DX: O34.211 Maternal care for low transverse scar from previous cesarean delivery (principal); D62 Acute posthemorrhagic anemia; O90.81 Anemia of the puerperium; Z37.0 Single live birth; Z3A.39 39 weeks gestation of pregnancy
CPT/HCPCS: 36415; 85025; 86850; 86900; 86901; 94664